=== PATIENT | male | born 1975 | race Caucasian/White ===

== ENCOUNTER 2021-12-08 16:23 | Emergency (ER) | payer OTHER, MEDICAID, SELFPAY ==
[2021-12-08 16:53] VITALS: BP 145/85; PULSE 79; RESP 19; TEMP 36.1; O2SAT 98; BMI 23.6
[2021-12-08] MEDS: Fluorescein Sodium STRIP 1 STRIP EYE-BOTH (19:10)
[2021-12-08] MEDS: Erythromycin Base 0.5% Oph Oin 1 GM TUBE 1 CM EYE-BOTH (19:11)
[2021-12-08] MEDS: Tetracaine HCl/PF 0.5% Oph Sol 4 ML DROPS 2 DROP EYE-BOTH (19:11)
--- NOTE | 2021-12-08 19:38 | ED.EYEPROB ---
HPI - Eye Problem General Chief complaint: Eye Problems Stated complaint: eye injury Time Seen by Provider: 12/08/21 18:58 Source: patient Mode of arrival: ambulatory Limitations: no limitations History of Present Illness HPI Narrative: 46-year-old male presenting to the ED with complaints of right eye pain/purulent drainage after he accidentally dropped the screwdriver on his eye when he was working under his car yesterday and since then he has been having blurry vision/purulent drainage. He he denies any other injuries complaints or concerns at this time. 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 car yesterday) Severity: moderate If Pain, Quality: burning Context: trauma Associated symptoms: none Treatments Prior to Arrival: irrigated eye Related Data Patient tetanus UTD: Yes Previous Rx's Medication Instructions Recorded doxycycline hyclate 100 mg tablet 100 mg PO BID 10 Days #20 tab 12/08/21 erythromycin 5 mg/gram (0.5 %) eye 0.5 inch OPHTHALMIC (EYE) QID 7 12/08/21 ointment Days #3.5 g Allergies Allergy/AdvReac Type Severity Reaction Status Date / Time No Known Allergies Allergy Verified 12/08/21 16:57 [No Known Allergies*] Review of Systems Review of Systems: Constitutional : No fevers, no chills, No changes in activity, No lethargy, No recent prior head injury, No agitation, No increased fussiness ENT/Mouth : No Ear Pain, No Nasal discharge/drainage Eyes: + Vision changes/blurry/decreased vision/Foreign body sensation/swelling/ redness / purulent discharge/ eyelid edema /itching, No Photophobia, no contact lens uses, no recent welding, no bleeding Cardiovascular : No Chest Pain, No SOB Respiratory : No Cough Gastrointestinal : No Nausea, No Vomiting, No abdominal Pain Genitourinary : No Dysuria, No Urinary Frequency, No Urinary Incontinence, No Urgency, No Flank Pain Musculoskeletal : No joint pain, No neck stiffness, No back pain/injury Skin : No lacerations Neuro : No unsteady gait, No Paresthesias, No Loss of Consciousness, No altered mental status, No dizziness, No Headache Denies past medical history of HIV, recent trauma, coagulopathy, recent spinal/ epidural procedure, new medication, URI symptoms, close contacts with similar symptoms, tick bite, or known CO2 exposure. Yes all other systems are reviewed and are negative PMFSH Past Medical History Attestation statement: The following information was validated with the patient. Social History Social History Advance Directives: No Physical Exam Vital Signs: Vital Signs: Last Vital Signs Temp 97 F 12/08/21 16:53 Pulse 79 12/08/21 16:53 Resp 19 12/08/21 16:53 BP 145/85 H 12/08/21 16:53 Pulse Ox 98 12/08/21 16:53 BMI result Body Mass Index 23.6 vital signs have been reviewed as normal and appeared to be correct. Blood pressure 145/85 Heart rate normal. Respiration rate normal. Temperature normal. Oxygen saturation normal. Appearance: Alert. Oriented X3. No acute distress. Head: Normal external exam. Normocephalic. Atraumatic. No Maurer signs noted. No raccoon eyes noted Eyes: PERRLA. EOMI. patient with a large right-sided corneal abrasion. No foreign bodies are noted. Although patient noted to have moderate purulent drainage to the right eye consistent with bacterial conjunctivitis with corneal abrasion. Left conjunctiva/ cornea within normal limits. Funduscopic exam within normal limits. Sclera normal. Eyelids normal. No papilledema noted. Anterior chamber normal. No photophobia noted. See nurses note for visual acuity. ENT: EAC normal. TM's Normal. Pharynx normal. Uvula midline. Moist mucous membranes. Neck: Normal inspection. Neck supple. FROM. No adenopathy. Thyroid Normal. No meningeal signs. No neck mass noted. CVS: Normal heart rate and rhythm. Heart sound normal. No murmurs noted. Pulses normal throughout. Respiratory: No respiratory distress. Painless inspiration. Breath sounds normal. Back: Full range of motion noted. Skin: Skin warm and dry. Normal skin color. Normal skin turgor. No rashes/lesions/lacerations noted. Extremities: No lower extremity edema. Extremities exhibit normal range of motion. Extremities nontender. Neuro: Oriented X 3. No motor deficit. No sensory deficit. Reflexes normal. Course Course Course Narrative: Patient with normal funduscopic exam. not consistent with ruptured globe. No bony tenderness is noted. Extraocular movements are intact. Although he is noted to have a corneal abrasion and bacterial conjunctivitis. No foreign bodies are noted. Therefore at this time erythromycin was placed. And patient will be discharged with p.o. and topical antibiotics and instructions to follow-up with Dr. Baron The sharepoint designer developer and to return if any new or worsening symptoms. Patient understands agrees with this plan. MDM - Eye Problem Medical Records Attestation: I reviewed the patient's medical records. Discharge Plan Discharge Clinical Impression: Corneal abrasion, Bacterial conjunctivitis Patient Disposition: Home, Self-Care Prescriptions: New erythromycin 5 mg/gram (0.5 %) ointment 0.5 inch ophthalmic (eye) QID 7 Days Qty: 3.5 0RF doxycycline hyclate 100 mg tablet 100 mg PO BID 10 Days Qty: 20 0RF Referrals: Joey Baron [Physician] - 2 days ( call on Friday or Friday to make a follow-up appointment)
== END 2021-12-08 20:02 | disposition home or self-care (01) ==
PROVIDERS: Emergency Provider Internal Medicine
DX: S05.01XA Injury of conjunctiva and corneal abrasion without foreign body, right eye, initial encounter (principal); H10.89 Other conjunctivitis; W20.8XXA Other cause of strike by thrown, projected or falling object, initial encounter; Y93.89 Activity, other specified; Y92.9 Unspecified place or not applicable; Y99.9 Unspecified external cause status
CPT/HCPCS: 99282; 99283

== ENCOUNTER 2023-11-22 23:17 | Emergency (ER) | payer MEDICAID, SELFPAY ==
--- NOTE | ~2023-11-22 | CT_ITS ---
EXAMINATION: CT HEAD WITHOUT CONTRAST CT CERVICAL SPINE WITHOUT CONTRAST CLINICAL INFORMATION: Trauma. Pain. COMPARISON: None available. TECHNIQUE: Contiguous axial imaging was performed through the head and cervical spine without intravenous administration of contrast. Sagittal and coronal reformatted images also obtained. This CT examination was performed using dose optimization techniques as appropriate, variously including the following: *Automated exposure control *Adjustment of mA and/or kV according to patient size (this includes techniques or standardized protocols for targeted exams where dose is matched to indication/reason for exam; i.e. extremities or head) *Use of iterative reconstruction technique DLP: 1180 mGy-cm FINDINGS: The lateral, third and fourth ventricles are normally outlined. The cortical sulci and basal cisterns are normally outlined as well. There is no acute territorial defect, hemorrhage or midline shift. The extra-axial spaces are unremarkable. Calvarium/scalp: Calvarium is intact. There is left periorbital soft tissue swelling. Maxillofacial sinuses and mastoids:. There is a comminuted nasal bone fracture. There is mild inferior right mastoid opacification. Visualized maxillofacial sinuses and left mastoid are clear. Cervical spine: There is straightening of the cervical spine curvature. There is dtid-st-dyhyzoxw C3-C4, C4-C5, C5-C6 and C6-C7 disc degenerative change with loss of disc space, endplate change and multilevel posterior osteophytes and facet osteoarthritic hypertrophic change with multilevel mild spinal canal narrowing and multilevel neuroforaminal narrowing rcor-ml-[id number] at C5-C6 and mild at the remaining levels. The bone mineralization is normal. There is no fracture. CT/CT head/brain wo IV con IMPRESSION: 1. There is left periorbital soft tissue swelling. Nasal bone fracture may be chronic. Correlation needed 2. There is no acute intracranial abnormality. 3. There is multilevel disc degenerative change, facet osteoarthritic hypertrophic change and mild spinal canal stenosis and neuroforaminal narrowing. 4. There is no acute cervical fracture or malalignment.
--- NOTE | ~2023-11-22 | CT_ITS ---
EXAMINATION: CT HEAD WITHOUT CONTRAST CT CERVICAL SPINE WITHOUT CONTRAST CLINICAL INFORMATION: Trauma. Pain. COMPARISON: None available. TECHNIQUE: Contiguous axial imaging was performed through the head and cervical spine without intravenous administration of contrast. Sagittal and coronal reformatted images also obtained. This CT examination was performed using dose optimization techniques as appropriate, variously including the following: *Automated exposure control *Adjustment of mA and/or kV according to patient size (this includes techniques or standardized protocols for targeted exams where dose is matched to indication/reason for exam; i.e. extremities or head) *Use of iterative reconstruction technique DLP: 1180 mGy-cm FINDINGS: The lateral, third and fourth ventricles are normally outlined. The cortical sulci and basal cisterns are normally outlined as well. There is no acute territorial defect, hemorrhage or midline shift. The extra-axial spaces are unremarkable. Calvarium/scalp: Calvarium is intact. There is left periorbital soft tissue swelling. Maxillofacial sinuses and mastoids:. There is a comminuted nasal bone fracture. There is mild inferior right mastoid opacification. Visualized maxillofacial sinuses and left mastoid are clear. Cervical spine: There is straightening of the cervical spine curvature. There is qqnv-zc-hjzqydby C3-C4, C4-C5, C5-C6 and C6-C7 disc degenerative change with loss of disc space, endplate change and multilevel posterior osteophytes and facet osteoarthritic hypertrophic change with multilevel mild spinal canal narrowing and multilevel neuroforaminal narrowing ndzl-ji-[id number] at C5-C6 and mild at the remaining levels. The bone mineralization is normal. There is no fracture. CT/CT cervical spine wo IV con IMPRESSION: 1. There is left periorbital soft tissue swelling. Nasal bone fracture may be chronic. Correlation needed 2. There is no acute intracranial abnormality. 3. There is multilevel disc degenerative change, facet osteoarthritic hypertrophic change and mild spinal canal stenosis and neuroforaminal narrowing. 4. There is no acute cervical fracture or malalignment.
[2023-11-22 23:21] VITALS: BP 139/81; BP 158/82; PULSE 71; PULSE 80; RESP 16; TEMP 36.7; O2SAT 97; O2SAT 98; BMI 22.5
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
[2023-11-23 06:34] VITALS: BP 139/81; PULSE 71; RESP 16; TEMP 36.7; O2SAT 97
== END 2023-11-23 06:35 | disposition home or self-care (01) ==
PROVIDERS: Emergency Provider Emergency Medicine
DX: S00.93XA Contusion of unspecified part of head, initial encounter (principal); Y00.XXXA Assault by blunt object, initial encounter; Y93.9 Activity, unspecified; Y92.009 Unspecified place in unspecified non-institutional (private) residence as the place of occurrence of the external cause; Y99.9 Unspecified external cause status
CPT/HCPCS: 70450; 72125; 99284

== ENCOUNTER 2024-12-27 17:55 | Emergency (ER) | payer MEDICAID, SELFPAY ==
[2024-12-27 18:22] VITALS: BP 166/91; PULSE 62; RESP 22; TEMP 36.2; O2SAT 99; BMI 25.1
--- NOTE | 2024-12-27 18:23 | ED_ITS ---
HPI - Abdominal Pain General Chief Complaint: Abdominal Pain Stated Complaint: abd pain Time Seen by Provider: 12/27/24 21:11 Related Data Previous Rx's ?Medication ?Instructions ?Recorded doxycycline hyclate 100 mg tablet 100 mg PO BID 10 days #20 tabs 12/08/21 erythromycin 5 mg/gram (0.5 %) eye 0.5 inch ophthalmic (eye) QID 12/08/21 ointment Bacterial conjunctivitis 7 days #3.5 grams Allergies Allergy/AdvReac Type Severity Reaction Status Date / Time No Known Allergies Allergy Verified 12/27/24 18:23 [No Known Allergies*] [facility] Social History Social History Advance Directives: No Advance Directives Information Provided: No Physical Exam ED Vital Signs: Vital Signs - 24 hr 12/27/24 18:22 Temperature 97.1 F Pulse Rate 62 Respiratory Rate 22 H Blood Pressure 166/91 H Pulse Oximetry 99 Oxygen Delivery Method Room Air BMI result Body Mass Index 25.1 Course Course Course Narrative: This is an RME: Additional HPI, ROS, PE not included below will be deferred to primary provider. RME assessment and note performed by: Fatmata Renteria PA-C This is a 15-khzk-dbk-male who presents to the ER with complaints of right sided groin pain for the last hour. Reports that he feels constipation, last BM was yesterday. Also endorsing nausea. He reports no testicular/penile pain. No urinary symptoms. No concerns for STIs. patient appears to be uncomfortable, advised charge nurse to bring patient back, unable to assess patient given limited privacy in triage. Plan: UA, labs, further ER eval needed Reevaluation(s) Reevaluation #1: Patient left without completing treatment. Medical Decision Making Lab Data 12/27/24 18:41 12/27/24 18:41 Labs: Lab Results 12/27/24 Range/Units 18:41 WBC 22.2 H (4.8-10.8) X10*3/uL RBC 5.45 (4.60-5.80) X10*6/uL Hgb 15.3 (14.0-18.0) g/dl Hct 46.1 (42.0-52.0) % MCV 84.6 (80.0-98.0) fL MCH 28.1 (27.0-33.0) pg MCHC 33.2 (31.0-36.0) g/dl RDW 14.7 (11.0-16.0) % Plt Count 327 (160-400) X10*3/uL MPV 10.2 (9.4-12.4) fL Immature Gran % (Auto) 0.7 H (0.0-0.4) % Neut % (Auto) 85.7 H (45-73) % Lymph % (Auto) 8.8 L (20-40) % Marin % (Auto) 4.3 (2-11) % Eos % (Auto) 0.1 (0-4) % Baso % (Auto) 0.4 (0-2) % Lymph # (Auto) 2.0 (1.2-4.9) X10*3/uL Marin # (Auto) 1.0 (0.1-1.2) X10*3/uL Eos # (Auto) 0.0 (0.0-0.4) X10*3/uL Baso # (Auto) 0.1 (0.0-0.2) X10*3/uL Abs Immat Gran (auto) 0.15 H (0.00-0.03) X10*3/uL Absolute Neuts (auto) 19.0 H (2.0-8.3) x10*3/uL Absolute Nucleated RBC 0.000 (0.0-0.012) X10*3/uL Nucleated RBC % (auto) 0.0 (0.0-0.2) /100WBC Sodium 142 (135-145) mmol/L Potassium 4.7 (3.3-5.1) mmol/L Chloride 107 (96-108) mmol/L Carbon Dioxide 27 (22-29) mmol/L Anion Gap 13 (12-20) BUN 16 (9-16) mg/dL Creatinine 0.88 (0.5-1.4) mg/dL Estim Creat Clear Calc 110.2 Estimated GFR > 60 Random Glucose 103 (60-115) mg/dL Calcium 9.6 (8.4-10.2) mg/dL Total Bilirubin 0.3 (0.0-1.0) mg/dL Direct Bilirubin 0.1 (0.0-0.5) mg/dL AST 22 (5-37) U/L ALT 16 (0-40) U/L Alkaline Phosphatase 39 (39-117) U/L Total Creatine Kinase 137 (38-174) U/L Total Protein 7.7 (6.5-8.0) g/dL Albumin 4.4 (3.5-5.0) g/dL Discharge Plan Discharge Clinical Impression: Groin pain Patient Disposition: Left W/O Completing Treatment Prescriptions: No Action erythromycin 5 mg/gram (0.5 %) ointment 0.5 inch ophthalmic (eye) QID 7 Days Qty: 3.5 0RF doxycycline hyclate 100 mg tablet 100 mg PO BID 10 Days Qty: 20 0RF Discharge Date/Time: 12/27/24 21:11
[2024-12-27 18:44] LABS: MANUAL DIFF FLAG NO
[2024-12-27 19:05] LABS: Alanine Aminotransferase 16 U/L (0-40); Albumin Level 4.4 g/dL (3.5-5.0); Alkaline Phosphatase 39 U/L (39-117); Anion Gap 13 (12-20); Aspartate Amino Transferase 22 U/L (5-37); Bilirubin Direct 0.1 mg/dL (0.0-0.5); Bilirubin Total 0.3 mg/dL (0.0-1.0); Blood Urea Nitrogen 16 mg/dL (9-16); Calcium 9.6 mg/dL (8.4-10.2); Carbon Dioxide 27 mmol/L (22-29); Chloride 107 mmol/L (96-108); Creatinine Clr Calc Pharmacy 110.2; Estimated Glomerular Filt Rate > 60; Glucose Random 103 mg/dL (60-115); Potassium 4.7 mmol/L (3.3-5.1); Sodium 142 mmol/L (135-145); Total Protein 7.7 g/dL (6.5-8.0)
[2024-12-27 19:50] LABS: Basophils Absolute Auto 0.1 X10*3/uL (0.0-0.2); Basophils Percent Auto 0.4 % (0-2); Eosinophils Percent Auto 0.1 % (0-4); Hematocrit 46.1 % (42.0-52.0); Hemoglobin 15.3 g/dl (14.0-18.0); Imm Gran Abs Auto 0.15 X10*3/uL (0.00-0.03); Imm Gran Pct Auto 0.7 % (0.0-0.4); Lymphocytes Percent Auto 8.8 % (20-40); Mean Corpuscular HGB Conc 33.2 g/dl (31.0-36.0); Mean Corpuscular Hemoglobin 28.1 pg (27.0-33.0); Mean Corpuscular Volume 84.6 fL (80.0-98.0); Mean Platelet Volume 10.2 fL (9.4-12.4); Monocytes Percent Auto 4.3 % (2-11); Neutrophils Percent Auto 85.7 % (45-73); Platelet Count 327 X10*3/uL (160-400); Red Blood Count 5.45 X10*6/uL (4.60-5.80); Red Cell Distribution Width 14.7 % (11.0-16.0); White Blood Count 22.2 X10*3/uL (4.8-10.8)
--- NOTE | 2024-12-27 21:17 | PC.NURSE ---
pt not in room at 20:25 when RN went in for assessment unsure if patient eloped from room, only in room for about 20 minutes prior to this
--- NOTE | 2024-12-27 21:19 | PC.NURSE ---
this RN called patient at home to inquire about if he left, pt did not answer phone.
== END 2024-12-27 21:11 | disposition left against medical advice (07) ==
PROVIDERS: Physician Assistant Medical; Emergency Provider Internal Medicine
DX: R10.30 Lower abdominal pain, unspecified (principal); K59.00 Constipation, unspecified; R11.0 Nausea; Z79.899 Other long term (current) drug therapy
CPT/HCPCS: 36415; 80048; 80076; 82550; 85025; 99282; 99283